=== PATIENT | male | born 1975 | race African-American/Black ===

== ENCOUNTER 2016-08-04 10:18 | Emergency (ER) | payer SELFPAY ==
[~2016-08-04] VITALS: Ht 188 cm; Wt 152.0 kg
[~2016-08-04 10:18] MED LIST: 1-ME1LIQ PO; HYDR-2768 PO; LISI40TA PO
[2016-08-04 10:26] VITALS: BP 204/142; PULSE 79; RESP 16; TEMP 98.1; O2SAT 99
[2016-08-04] MEDS ORDERED: LISI2.5T3 PO (11:01)
[2016-08-04] MEDS ORDERED: AMLO2.5T PO (11:01)
[2016-08-04] MEDS ORDERED: HYDR25TA5 PO ×2 (11:01→11:10)
[2016-08-04] MEDS ORDERED: LISI40TA PO (11:10)
[2016-08-04] MEDS ORDERED: AMLO10TA2 PO (11:10)
--- NOTE | 2016-08-04 11:13 | PD ---
HPI Chief Complaint: Hypertension Time Seen by Provider: 10:57 Travel History International Travel<30 days: No Contact w/Intl Traveler<30days: No Traveled to known affect area: No History of Present Illness HPI This patient has long-standing difficulty with hypertension. He ran out of his medications. He is on 3 separate medications and when he takes them his blood pressure is reasonable but he has run out. Pressure currently 204/140. He does not have headache or chest pain or presyncopal symptoms. Severity is mild. PFSH Past Medical History Hx Anticoagulant Therapy: Yes (162 mg asa) Asthma: No Autoimmune Disease: No Cardiovascular Problems: Yes (htn out of meds) COPD: No Cerebrovascular Accident: Yes (CVA) Diminished Hearing: No Hypertension: Yes Tetanus Vaccination: > 5 Years Influenza Vaccination: No Past Surgical History Surgical History: No Previous Surgery Social History Alcohol Use: Yes (Every other day) Tobacco Use: Yes (06/23 PPD) Substance Use: No Allergies-Medications (Allergen,Severity, Reaction): Coded Allergies: No Known Allergies (Verified , 08/04/16) Reported Meds & Prescriptions Reported Meds & Active Scripts Active Amlodipine (Amlodipine Besylate) 10 Mg Tab 10 Mg PO DAILY Hydrochlorothiazide 25 Mg Tab 25 Mg PO DAILY Lisinopril 40 Mg Tab 40 Mg PO DAILY Reported Lisinopril 2.5 Mg Tab 2.5 Mg PO DAILY Amlodipine (Amlodipine Besylate) 2.5 Mg Tab 2.5 Mg PO DAILY Hydrochlorothiazide 25 Mg Tab 25 Mg PO DAILY Review of Systems General / Constitutional: No: Fever Eyes: No: Visual changes HENT: No: Headaches Cardiovascular: No: Chest Pain or Discomfort Respiratory: No: Shortness of Breath Gastrointestinal: No: Abdominal Pain Genitourinary: No: Dysuria Musculoskeletal: No: Pain Skin: No Rash Neurologic: No: Weakness Psychiatric: No: Depression Endocrine: No: Polydipsia Hematologic/Lymphatic: No: Easy Bruising Physical Exam Narrative CARDIOVASCULAR: Regular rate and rhythm without murmur. Extremities showed no edema or varicosities. RESPIRATORY: Respiratory effort unlabored, no retractions or use of accessory muscles. Breath sounds are clear and symmetric. NECK: Symmetrical appearance, midline trachea. No mass or crepitus. Thyroid without enlargement, tenderness, or mass. Data Data Last Documented VS Vital Signs Date Time Temp Pulse Resp B/P Pulse Ox O2 Delivery O2 Flow Rate FiO2 08/04/16 10:26 98.1 79 16 204/142 99 Orders Clonidine (Catapres) (08/04/16 11:15) MDM Medical Decision Making Medical Screen Exam Complete: Yes Emergency Medical Condition: Yes Medical Record Reviewed: Yes Differential Diagnosis Accelerated hypertension, noncompliance, elevated BP Narrative Course I have reviewed the patient's electronic medical record. Patient is neurologically intact without headache I gave him a dose of clonidine I refilled all of his medications for one month Advised him to check and record daily Follow-up with primary care Diagnosis Primary Impression: Accelerated hypertension Additional Instructions: The patient was advised to follow up with their physician and return if they worsen. Check and record blood pressure daily Med/Other Pt SpecificInfo: Prescription(s) given Scripts Amlodipine 10 Mg Tab10 Mg PO DAILY #30 TAB Ref 0 Prov:Aly Sykes MD 08/04/16 Hydrochlorothiazide 25 Mg Tab25 Mg PO DAILY #30 TAB Ref 0 Prov:Aly Sykes MD 08/04/16 Lisinopril 40 Mg Tab40 Mg PO DAILY #30 TAB Ref 0 Prov:Aly Sykes MD 08/04/16 Disposition: 01 DISCHARGE HOME Condition: Stable Aly Sykes MD Aug 04, 2016 11:13
[2016-08-04] MEDS ORDERED: cloNIDine HCL 0.2 MG TAB PO ONE (11:15)
== END 2016-08-04 11:20 | disposition home or self-care (01) ==
LOC: PHED 10:18
DX: I10 Essential (primary) hypertension (principal); F17.200 Nicotine dependence, unspecified, uncomplicated; Z76.0 Encounter for issue of repeat prescription; Z79.82 Long term (current) use of aspirin; Z86.79 Personal history of other diseases of the circulatory system; Z86.73 Personal history of transient ischemic attack (TIA), and cerebral infarction without residual deficits
CPT/HCPCS: 99283